=== PATIENT | female | born 1940 | race Caucasian/White ===

== ENCOUNTER 2023-11-09 11:56 | Emergency (ER) | payer MEDICARE, BC, MEDICAID ==
[~2023-11-09] VITALS: Ht 180.3 cm; Wt 100.0 kg
[~2023-11-09 11:56] MED LIST: ACET-814 PO; APIX5TAB3 PO; COR3.125T PO; DAPA10TA PO; IBUP-24 PO; SACU1TAB PO; SPIR25TA PO
[2023-11-09 12:16] VITALS: BP 157/101; PULSE 87; TEMP 97.5; O2SAT 98
[2023-11-09] MEDS ORDERED: diazepam 5mg tablet PO ONE (12:30)
[2023-11-09] MEDS ORDERED: oxyCODONE/APAP 5-325mg tablet PO ONE (12:30)
[2023-11-09 12:36] VITALS: RESP 19
[2023-11-09] MEDS ORDERED: LIDO700A32 TOP ×2 (14:10→14:21)
[2023-11-09] MEDS ORDERED: CYCL-1 PO ×2 (14:10→14:21)
[2023-11-09] MEDS ORDERED: OXYC-145 PO (14:10)
[2023-11-09] MEDS ORDERED: PER5325T PO (14:21)
== END 2023-11-09 14:30 | disposition home or self-care (01) ==
LOC: ER 11:57
DX: M48.061 Spinal stenosis, lumbar region without neurogenic claudication (principal); M54.50 Low back pain, unspecified; G89.29 Other chronic pain; M19.90 Unspecified osteoarthritis, unspecified site; Z91.030 Bee allergy status; Z91.013 Allergy to seafood; Z79.899 Other long term (current) drug therapy
CPT/HCPCS: 72131; 99284